=== PATIENT | female | born 1950 | race Caucasian/White ===

== ENCOUNTER 2020-01-16 15:40 | Emergency (ER) | payer BC, OTHER, SELFPAY ==
[~2020-01-16] VITALS: Ht 167.6 cm; Wt 67.0 kg
[2020-01-16] MEDS ORDERED: DIPH,PERTUSS(ACELL),TET VAC/PF 0.5 ML IM-VACC ONE ×2 (16:00→16:51)
[2020-01-16] MEDS ORDERED: LIDOCAINE-MPF 1%, 5ML ONE (16:34)
--- NOTE | 2020-01-16 16:57 | NUR ---
PT. IS A & O X 4 WITH A GCS OF 15. PT. HAD MGLF WHILE WALKING AND HIT HER HEAD OFF THE CURB. PT. DENIES LOC. PT.'S WOUND WAS IRRIGATED AND STAPLED. PT. TOLERATED THE PROCEDURE WELL. VITALS MONITORED. PT. WAS GIVEN DISCHARGE INSTRUCTIONS AND SCRIPTS WITH UNDERSTANDING VERBALIZED ALONG WITH WITH WILLINGNESS TO COMPLY.
[2020-01-16 17:00] VITALS: BP 166/94
[2020-01-16] MEDS ORDERED: LIDOCAINE-MPF 1%, 5ML INFIL ONE (17:00)
== END 2020-01-16 17:23 | disposition home or self-care (01) ==
LOC: ED 16:50
DX: S01.01XA Laceration without foreign body of scalp, initial encounter (principal); S09.90XA Unspecified injury of head, initial encounter; I10 Essential (primary) hypertension; W01.0XXA Fall on same level from slipping, tripping and stumbling without subsequent striking against object, initial encounter; Y93.89 Activity, other specified; Y92.488 Other paved roadways as the place of occurrence of the external cause; Y99.8 Other external cause status
CPT/HCPCS: 12032; 90471; 90715; 99284